=== PATIENT | female | born 1965 | race American Indian/Alaskan Native ===

== ENCOUNTER 2018-01-13 11:24 | Outpatient (CLI) | payer OTHER ==
--- NOTE | 2018-01-13 15:53 | XRay Report ---
THORACIC SPINE THREE VIEWS: 01/13/18 11:24:00 CLINICAL: Pain. FINDINGS: Normal vertebral body height and alignment. Mild degenerative disc disease, most prominent at T7-8. No fracture. The pedicles are intact. IMPRESSION: Mild degenerative disc disease.
--- NOTE | 2018-01-13 23:34 | XRay Report ---
FINAL REPORT EXAM: XR SPINE LUMBOSACRAL 2-3V HISTORY: DORSALGIA TECHNIQUE: Lumbar spine three views PRIORS: None. FINDINGS: There is grade 1 anterolisthesis of L5 relative to S1. Vertebral bodies are normal in height. Disc spaces are within normal limits. Posterior elements appear intact. Spinous processes are unremarkable. Transverse processes are within normal limits. SI joints are unremarkable. IMPRESSION: Grade 1 spondylolisthesis at L5-S1
== END 2018-01-13 11:25 | disposition home or self-care (01) ==
LOC: SPVIMAG 11:24
PROVIDERS: ATTEND Internal Medicine
DX: M43.17 Spondylolisthesis, lumbosacral region (principal); M51.34 Other intervertebral disc degeneration, thoracic region
CPT/HCPCS: 72072; 72100